=== PATIENT | female | born 1985 | race Two or more races ===

== ENCOUNTER 2016-06-25 19:31 | Emergency (ER) | payer OTHER ==
[~2016-06-25] VITALS: Ht 165.1 cm; Wt 59.0 kg
[2016-06-25 19:49] VITALS: BP 108/69
== END 2016-06-25 23:43 | disposition home or self-care (01) ==
LOC: ER 19:31
DX: S63.602A Unspecified sprain of left thumb, initial encounter (principal); W23.1XXA Caught, crushed, jammed, or pinched between stationary objects, initial encounter; Y93.89 Activity, other specified; Y92.89 Other specified places as the place of occurrence of the external cause; Y99.9 Unspecified external cause status
CPT/HCPCS: 29125; 73140; 99284; A4606; Z7610

== ENCOUNTER 2016-07-11 14:31 | Emergency (ER) | payer OTHER ==
[~2016-07-11] VITALS: Ht 165.1 cm; Wt 61.2 kg
[2016-07-11 17:43] VITALS: BP 108/76
== END 2016-07-11 17:45 | disposition home or self-care (01) ==
LOC: ER 14:33
DX: S63.602A Unspecified sprain of left thumb, initial encounter (principal); M25.571 Pain in right ankle and joints of right foot; X58.XXXA Exposure to other specified factors, initial encounter; Y93.89 Activity, other specified; Y92.89 Other specified places as the place of occurrence of the external cause; Y99.8 Other external cause status
CPT/HCPCS: 73630; 99284; A4606; Z7610

== ENCOUNTER 2021-08-15 10:21 | Emergency (ER) | payer OTHER ==
[~2021-08-15] VITALS: Ht 165.1 cm; Wt 83.9 kg
[2021-08-15 10:38] VITALS: BP 134/81
[2021-08-15] MEDS ORDERED: IBUP-1955 PO (12:27)
--- NOTE | 2021-08-15 12:35 | NUR ---
Patient discharged to home in stable condition. Written and verbal after care instructions given. Patient verbalizes understanding of instruction.
== END 2021-08-15 12:36 | disposition home or self-care (01) ==
LOC: ER 10:21
DX: S93.505A Unspecified sprain of left lesser toe(s), initial encounter (principal); X58.XXXA Exposure to other specified factors, initial encounter; Y93.89 Activity, other specified; Y92.89 Other specified places as the place of occurrence of the external cause; Y99.8 Other external cause status
CPT/HCPCS: 73660-TC